=== PATIENT | male | born 1950 | race Caucasian/White ===

== ENCOUNTER 2022-09-15 11:59 | Emergency (ER) | payer MEDICARE, SELFPAY ==
--- NOTE | 2022-09-15 12:01 | ED.EAR ---
HPI - Ear Problem General Chief complaint: Ear Stated complaint: Ears Irritation Time Seen by Provider: 09/15/22 12:01 Source: patient Mode of arrival: ambulatory Limitations: no limitations History of Present Illness HPI Narrative: Gregory is a 72-year-old male patient presenting to the clinic today with request for irrigation to bilateral ears. 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 He denies any pain or concerns. Related Data Home Medications Medication Instructions Recorded Confirmed apixaban 5 mg tablet (Eliquis) mg 09/15/22 atorvastatin 80 mg tablet mg 09/15/22 diltiazem HCl 120 mg mg PO 09/15/22 capsule,extended release 24 hr empagliflozin 25 mg tablet mg 09/15/22 (Jardiance) lisinopril 10 mg tablet mg 09/15/22 magnesium oxide 400 mg (241.3 mg mg 09/15/22 magnesium) tablet metformin 500 mg tablet,extended mg PO 09/15/22 release 24 hr pantoprazole 20 mg tablet,delayed mg PO 09/15/22 release pantoprazole 40 mg tablet,delayed mg PO 09/15/22 release sotalol 120 mg tablet mg 09/15/22 sucralfate 1 gram tablet 09/15/22 Allergies Allergy/AdvReac Type Severity Reaction Status Date / Time Penicillins Allergy Unknown Hives Verified 09/15/22 12:25 Review of Systems Review of Systems: Pertinent positives per HPI. Patient denies any fever, chills, rash, headache, visual changes, dizziness, cough, runny nose, sore throat, shortness of breath, chest pain, palpitations, nausea, vomiting, diarrhea, constipation, abdominal pain, or any urinary issues. PMFSH Social History Social History Alcohol intake: current Comments At the time of my signature, I reviewed and agree with the nursing past medical, surgical, social, and family history. There is no relevant family history pertinent to the patient complaint. Exam Narrative: General: Well-developed, well nourished, in no apparent distress Head: Normocephalic, atraumatic Eyes: Pupils equally round and reactive to light bilaterally, EOM intact, sclera and conjunctive clear, no discharge, lids normal Ears: Bilateral cerumen impaction cleared using ear irrigation and ear curette, bilateral TMs intact and clear, ear canals clear, no drainage, grossly hearing normal. Nose: Nares patent, no discharge, no inflammation, no sinus tenderness. Mouth: Oropharynx without lesions or masses, good dentition, MMM. Neck: Supple, trachea midline, no enlargement of anterior or posterior cervical nodes, no thyroid masses or goiter palpable. Cardio: Regular rate and rhythm, s1 and s2 normal, no murmur appreciated. Resp: Clear to auscultation bilaterally anteriorly and posteriorly, no rhonchi, rales, wheezing or rubs Course Course Emergency Course: Portions of this record may have been created with voice recognition software. Level of Care: Express Care Visit Vital Signs Vital signs: Vital Signs Temperature 35.5 C L 09/15/22 12:12 Pulse Rate 92 09/15/22 12:12 Respiratory Rate 14 09/15/22 12:12 Blood Pressure 138/85 09/15/22 12:12 Pulse Oximetry 97 09/15/22 12:12 Oxygen Delivery Room Air 09/15/22 12:12 Temperature 35.5 C L 09/15/22 12:12 Pulse Rate 92 09/15/22 12:12 Respiratory Rate 14 09/15/22 12:12 Blood Pressure 138/85 09/15/22 12:12 Pulse Oximetry 97 09/15/22 12:12 Oxygen Delivery Room Air 09/15/22 12:12 Vital signs reviewed Procedures Ear Wax Removal Both Ears: Ear Wax Removal Date: 09/15/22 Results: Re-examined: cerumen removed completely TM Examination: TM(s) intact, normal appearance Ear Canal Exam: atraumatic Patient Tolerated Procedure: well and no complications Complications: no problems Technique: ear canal irrigated and ear canal curetted Additional Comments: Verbal consent obtained for ear irrigation. Risk an
[2022-09-15 12:12] VITALS: BP 138/85; PULSE 92; RESP 14; TEMP 35.5; O2SAT 97
--- NOTE | 2022-09-15 12:22 | PC.NURSE ---
ear irrigation set up at bedside. [id number]
== END 2022-09-15 12:36 | disposition home or self-care (01) ==
PROVIDERS: Emergency Provider Nurse Practitioner Family; PCP Internal Medicine
DX: H61.23 Impacted cerumen, bilateral (principal); Z79.01 Long term (current) use of anticoagulants; Z79.84 Long term (current) use of oral hypoglycemic drugs
CPT/HCPCS: 69210; 99212; G0463